=== PATIENT | female | born 1975 | race Caucasian/White ===

== ENCOUNTER 2017-12-23 20:35 | Emergency (ER) | payer OTHER ==
[2017-12-23 20:35] VITALS: BMI 32.3
[2017-12-23 20:54] VITALS: BP 154/92; PULSE 85; RESP 18; O2SAT 95
[2017-12-23] MEDS ORDERED: Sodium Chloride 0.9% 1,000 ML IV STA (20:56)
--- NOTE | 2017-12-23 21:35 | ED PDOC ---
Arrival/HPI - General Chief Complaint: GI Problem Time Seen by Provider: 12/23/17 20:44 Historian: Patient - History of Present Illness Narrative History of Present Illness (Text): 12/23/17 21:36 A 42 year old female presents to the emergency department for evaluation of vomiting, shaking, and generalized weakness. Patient reports she was at her chiropractor's office when she became shaky, vomited twice and notes generalized weakness. Patient reports she is currently feeling better. Patient denies any chest pain at any time. Denies any shortness of breath, fever or any other complaints at this time. Symptom Onset: Sudden Symptom Course: Unchanged Activities at Onset: Rest Modifying Factors (Text): none Past Medical History - Provider Review Nursing Documentation Reviewed: Yes - Infectious Disease Hx of Infectious Diseases: None - Cardiac Hx Hypertension: Yes - Psychiatric Hx Substance Use: No - Surgical History Hx Appendectomy: Yes - Anesthesia Hx Anesthesia: Yes Hx Anesthesia Reactions: No Hx Malignant Hyperthermia: No Family/Social History - Physician Review Nursing Documentation Reviewed: Yes Family/Social History: No Known Family HX Smoking Status: Never Smoked Hx Alcohol Use: No Hx Substance Use: No Allergies/Home Meds Allergies/Adverse Reactions: Allergies No Known Allergies Allergy (Verified 03/18/16 08:46) Review of Systems - Physician Review All systems were reviewed & negative as marked: Yes - Review of Systems Constitutional: Other (generalized weakness; shaky). absent: Fevers Respiratory: absent: SOB Cardiovascular: absent: Chest Pain Gastrointestinal: Vomiting Physical Exam Vital Signs Reviewed: Yes Vital Signs Pulse Resp BP Pulse Ox 12/23/17 20:53 85 18 154/92 H 95 Temperature: Afebrile Blood Pressure: Hypertensive Pulse: Regular Respiratory Rate: Normal Appearance: Positive for: Well-Appearing, Non-Toxic, Comfortable Pain Distress: None Mental Status: Positive for: Alert and Oriented X 3 - Systems Exam Head: Present: Atraumatic, Normocephalic Pupils: Present: PERRL Extroacular Muscles: Present: EOMI Conjunctiva: Present: Normal Mouth: Present: Moist Mucous Membranes Neck: Present: Normal Range of Motion Respiratory/Chest: Present: Clear to Auscultation, Good Air Exchange. No: Respiratory Distress, Accessory Muscle Use Cardiovascular: Present: Regular Rate and Rhythm, Normal S1, S2. No: Murmurs Abdomen: No: Tenderness, Distention, Peritoneal Signs Back: Present: Normal Inspection Upper Extremity: Present: Normal Inspection. No: Cyanosis, Edema Lower Extremity: Present: Normal Inspection. No: Edema Neurological: Present: GCS=15, CN II-XII Intact, Speech Normal Skin: Present: Warm, Dry, Normal Color. No: Rashes Psychiatric: Present: Alert, Oriented x 3, Normal Insight, Normal Concentration Medical Decision Making ED Course and Treatment: 12/23/17 21:33 Impression: A 42 year old female with vomiting, generalized weakness. Plan: -- EKG -- labs -- IV fluids, Toradol -- Reassess and disposition Prior Visits: Notes and results from previous visits were reviewed. Patient was last seen in the emergency department on 03/18/16 for evaluation of left knee pain. Progress Notes: 12/23/17 21:54 EKG: Ordered, reviewed, and independently interpreted the EKG. Rate : 70 BPM Rhythm : NSR Interpretation : normal intervals, normal axis 12/23/17 22:48 10:50pm: Patient is feeling better. Patient to be discharged with follow up instructions. - Lab Interpretations Lab Results: 12/23/17 21:34 12/23/17 21:34 Lab Results 12/23/17 21:34: Sodium 139, Potassium 3.7, Chloride 104, Carbon Dioxide 23, Anion Gap 16, BUN 16, Creatinine 0.8, Est GFR ( Amer) > 60, Est GFR (Non- Af Amer) > 60, Random Glucose 122 H, Calcium 9.3, Magnesium 1.7, Total Bilirubin 0.4, AST 23, ALT 25, Alkaline Phosphatase 34 L, Lactate Dehydrogenase 457, Total Creatine Kinase 110, Troponin I < 0.01, Total Protein 7.0, Albumin 4.0, Globulin 3.0, Albumin/Globulin Ratio 1.3 12/23/17 21:34: WBC 8.8, RBC 4.43, Hgb 13.3, Hct 38.0, MCV 85.8, MCH 30.0, MCHC 35.0, RDW 12.5, Plt Count 232, MPV 10.3, Gran % 65.9, Lymph % (Auto) 28.3, [place] % (Auto) 4.2, Eos % (Auto) 1.1 L, Baso % (Auto) 0.5, Gran # 5.80, Lymph # (Auto ) 2.5, [place] # (Auto) 0.4, Eos # (Auto) 0.1, Baso # (Auto) 0.04 I have reviewed the lab results: Yes - EKG Interpretation Interpreted by ED Physician: Yes Type: 12 lead EKG - Medication Orders Current Medication Orders: Discontinued Medications Sodium Chloride (Sodium Chloride 0.9%) 1,000 mls @ 999 mls/hr IV .Q1H1M STA Stop: 12/23/17 21:56 Last Admin: 12/23/17 21:35 Dose: 999 mls/hr eMAR Start Stop Document 12/23/17 21:35 LA (Rec: 12/23/17 21:36 LA [id number]) Intravenous Solution Start Date 12/23/17 Start Time 21:36 End Date 12/23/17 End time 22:37 Total Infusion Time 61 Ketorolac Tromethamine (Toradol) 30 mg IVP STAT STA Stop: 12/23/17 20:58 Last Admin: 12/23/17 21:35 Dose: 30 mg MAR Pain Assessment Document 12/23/17 21:35 LA (Rec: 12/23/17 21:35 LA [id number]) Pain Reassessment Is this a pain reassessment? No Sleep Is patient sleeping during reassessment? No Presence of Pain Presence of Pain Yes Pain Scale Used Pain Scale Used Numeric Location Pain Location Body Site Abdomen Description Intensity of Pain at present 6 IVP Administration Document 12/23/17 21:35 LA (Rec: 12/23/17 21:35 LA [id number]) Charges for Administration # of IVP Administrations 1 - Scribe Statement The provider has reviewed the documentation as recorded by the Rhianna Jacob Provider Scribe Attestation: All medical record entries made by the Scribdee were at my direction and personally dictated by me. I have reviewed the chart and agree that the record accurately reflects my personal performance of the history, physical exam, medical decision making, and the department course for this patient. I have also personally directed, reviewed, and agree with the discharge instructions and disposition. Disposition/Present on Arrival - Present on Arrival Any Indicators Present on Arrival: Yes History of DVT/PE: No History of Uncontrolled Diabetes: No Urinary Catheter: No History of Decub. Ulcer: No History Surgical Site Infection Following: None - Disposition Have Diagnosis and Disposition been Completed?: No Diagnosis: Vasovagal episode Disposition: HOME/ ROUTINE Disposition Time: 23:00 Patient Problems: Current Active Problems Problem Status Onset Vasovagal episode Acute Condition: IMPROVED Discharge Instructions (ExitCare): Vasovagal Response (DC) Additional Instructions: Thank you for letting us take care of you today. The emergency medical care you received today was directed at your acute symptoms. If you were prescribed any medication, please fill it and take as directed. It may take several days for your symptoms to resolve. Return to the Emergency Department if your symptoms worsen, do not improve, or if you have any other problems. Please contact your doctor or call one of the physicians/clinics you have been referred to that are listed on the Patient Visit Information form that is included in your discharge packet. Bring any paperwork you were given at discharge with you along with any medications you are taking to your follow up visit. Our treatment cannot replace ongoing medical care by a primary care provider (PCP) outside of the emergency department. Thank you for allowing the [facility] team to be part of your care today. Follow up with your primary doctor in 2-3 days for re-evaluation and further management. Referrals: Lynn Spicer MD [Primary Care Provider] - Follow up with primary Forms: [employer] (Bengali)
[2017-12-23 21:41] LABS: BASO # 0.04 K/mm3 (0.0-2.0); BASO % 0.5 % (0.0-3.0); EOS # 0.1 (0.0-0.7); EOS % 1.1 % (1.5-5.0); GRAN # 5.8 (1.4-6.5); GRAN % 65.9 % (50.0-68.0); HEMOGLOBIN 13.3 g/dL (12.0-16.0); LYMPH # 2.5 (1.2-3.4); LYMPH % 28.3 % (22.0-35.0); MEAN CELL VOLUME 85.8 fl (80.0-105.0); MEAN PLATELET VOLUME 10.3 fl (7.0-11.0); MONO # 0.4 (0.1-0.6); MONO % 4.2 % (1.0-6.0); RBC 4.43 10^6/uL (3.5-6.1); RED CELL DISTRIBUTION WIDTH 12.5 % (11.5-14.5); WHITE BLOOD COUNT 8.8 10^3/ul (4.5-11.0)
[2017-12-23 21:51] LABS: ALB/GLOB RATIO 1.3 (1.1-1.8); ALT/SGPT 25 U/L (7-56); AST/SGOT 23 U/L (14-36); BLOOD UREA NITROGEN 16 mg/dL (7-21); CALCIUM 9.3 mg/dL (8.4-10.5); GFR AFRICAN-AMERICAN > 60; GFR NON-AFRICAN AMERICAN > 60
[2017-12-23 22:05] LABS: TROPONIN I < 0.01 ng/mL
--- NOTE | 2017-12-24 22:49 | CARD ---
APPROVED REPORT EKG Measurement Heart [id number] <Conclusion> Normal sinus rhythm Cannot rule out Anterior infarct, age undetermined Abnormal ECG
== END 2017-12-23 22:55 | disposition home or self-care (01) ==
LOC: ED 20:35
DX: R55 Syncope and collapse (principal); I10 Essential (primary) hypertension
CPT/HCPCS: 80053; 82550; 83615; 83735; 84484; 85025; 93005; 96361; 96374; 99283; J1885; J7040